=== PATIENT | male | born 1950 | race Caucasian/White ===

== ENCOUNTER 2016-04-25 00:07 | Observation (INO) | payer MEDICARE, OTHER ==
[2016-04-25 05:19] LABS: HEMOGLOBIN 11.4 gm/dl (14.0-17.5); RED BLOOD COUNT 3.59 M/UL (4.20-5.50); WHITE BLOOD COUNT 8.8 K/UL (4.5-11.0)
[2016-04-25] MEDS ORDERED: NEURONTIN 300300 MG PO (14:04)
[2016-04-25] MEDS ORDERED: SYNTHROID175 MCG PO (14:04)
[2016-04-25] MEDS ORDERED: MIRTAZAPINE7.5 MG PO (14:06)
[2016-04-25] MEDS ORDERED: VITAMIN D1000 UNI1 PO (14:07)
[2016-04-25] MEDS ORDERED: IMDUR ER TAB 3030 MG PO (14:13)
[2016-04-25] MEDS ORDERED: LIPITOR TAB 2020 MG PO (14:13)
[2016-04-25] MEDS ORDERED: LISINOPRIL40 MG PO (14:14)
[2016-04-25] MEDS ORDERED: METOPROLOL TART25 MG PO (14:15)
[2016-04-25] MEDS ORDERED: ASPIR 8181 MG PO (14:16)
[2016-04-25] MEDS ORDERED: B-121000 MCG PO (14:16)
[2016-04-25] MEDS ORDERED: LANTUS100 UNIT/1 SQ (14:17)
[2016-04-25] MEDS ORDERED: MIRAPEX1.5 MG PO (14:17)
[2016-04-25] MEDS ORDERED: NOVOLOG100 UNIT/1 SQ ×2 (14:19→14:20)
[2016-04-25] MEDS ORDERED: PROVENTIL HFA 61 INH INH (14:22)
[2016-04-25] MEDS ORDERED: EFFEXOR 37.537.5 MG PO (14:26)
[2016-04-26 06:34] LABS: HEMOGLOBIN 11.2 gm/dl (14.0-17.5); RED BLOOD COUNT 3.55 M/UL (4.20-5.50); WHITE BLOOD COUNT 9.8 K/UL (4.5-11.0)
[2016-04-26] MEDS ORDERED: AUGMENTIN 875-1 EACH PO (11:30)
[2016-08-19] MEDS ORDERED: OXYCONTIN20 MG PO (02:27)
[2016-08-19] MEDS ORDERED: SYNTHROID200 MCG PO (02:27)
[2016-08-19] MEDS ORDERED: TENORMIN 25 MG25 MG PO (02:28)
[2016-08-19] MEDS ORDERED: VITAMIN D350000 UNIT PO (02:28)
[2016-08-19] MEDS ORDERED: ISORDIL TAB 1010 MG PO (02:29)
[2016-08-19] MEDS ORDERED: ZOCOR 40 MG TAB40 MG PO (02:30)
[2016-08-19] MEDS ORDERED: HYDROCODON-ACE1 EAC2 PO (02:31)
[2016-08-19] MEDS ORDERED: VITAMIN B-121000 MC3 PO (02:33)
[2016-08-19] MEDS ORDERED: LANTUS100 UNIT/1 SQ (02:35)
[2016-08-19] MEDS ORDERED: ROBITUSSIN AC480 ML PO (02:38)
[2016-08-19] MEDS ORDERED: HUMULIN R500 UNIT/1 SQ (02:41)
[2016-08-19] MEDS ORDERED: NEURONTIN 300300 MG PO (03:40)
[2016-08-19] MEDS ORDERED: MIRAPEX1.5 MG PO (03:41)
[2016-08-19] MEDS ORDERED: PROVENTIL HFA 61 INH INH ×2 (03:43→03:49)
[2016-08-20] MEDS ORDERED: NOVOLOG 10100 UNITS/ SC (12:23)
[2016-08-20] MEDS ORDERED: NOVOLOG 10100 UNITS/ INJ ×2 (12:24→12:25)
[2016-08-20] MEDS ORDERED: LANTUS100 UNIT/1 SQ (12:26)
== END 2016-04-26 12:27 | disposition home or self-care (01) ==
LOC: ER1 00:07 → M/S 10:00 → ZEROF 10:00 → M/S 10:00
PROVIDERS: Family Medicine; Physician Assistant; ADMIT Internal Medicine
DX: R07.89 Other chest pain (principal); I51.7 Cardiomegaly; J98.11 Atelectasis; J18.9 Pneumonia, unspecified organism; E11.22 Type 2 diabetes mellitus with diabetic chronic kidney disease; I12.9 Hypertensive chronic kidney disease with stage 1 through stage 4 chronic kidney disease, or unspecified chronic kidney disease; N18.3 Chronic kidney disease, stage 3 (moderate); R74.8 Abnormal levels of other serum enzymes; F17.210 Nicotine dependence, cigarettes, uncomplicated; Z85.828 Personal history of other malignant neoplasm of skin; Z82.49 Family history of ischemic heart disease and other diseases of the circulatory system; Z83.3 Family history of diabetes mellitus; Z80.51 Family history of malignant neoplasm of kidney; Z82.0 Family history of epilepsy and other diseases of the nervous system; Z88.8 Allergy status to other drugs, medicaments and biological substances; Z79.82 Long term (current) use of aspirin; Z79.899 Other long term (current) drug therapy; Z90.49 Acquired absence of other specified parts of digestive tract; Z98.890 Other specified postprocedural states
CPT/HCPCS: ECHO; 36415; 71010; 71260; 80048; 80053; 80061; 82550; 82553; 82962; 83690; 83874; 83880; 84443; 84484; 85025; 85379; 93005; 93306; 96374; 96375; 99285; G0378; J0456; J0696; J7030; J7050; Q9963

== ENCOUNTER → 2016-06-16 | Outpatient (CLI) | payer MEDICARE, OTHER ==
[~2016-06-16] MED LIST: ASPIR 8181 MG PO; AUGMENTIN 875-1 EACH PO; B-121000 MCG PO; EFFEXOR 37.537.5 MG PO; HUMULIN R500 UNIT/1 SQ; HYDROCODON-ACE1 EAC2 PO; IMDUR ER TAB 3030 MG PO; ISORDIL TAB 1010 MG PO; LANTUS100 UNIT/1 SQ; LIPITOR TAB 2020 MG PO; LISINOPRIL40 MG PO; METOPROLOL TART25 MG PO; MIRAPEX1.5 MG PO; MIRTAZAPINE7.5 MG PO; NEURONTIN 300300 MG PO; NOVOLOG 10100 UNITS/ INJ; NOVOLOG 10100 UNITS/ SC; NOVOLOG100 UNIT/1 SQ; OXYCONTIN20 MG PO; PROVENTIL HFA 61 INH INH; ROBITUSSIN AC480 ML PO; SYNTHROID175 MCG PO; SYNTHROID200 MCG PO; TENORMIN 25 MG25 MG PO; VITAMIN B-121000 MC3 PO; VITAMIN D1000 UNI1 PO; VITAMIN D350000 UNIT PO; ZOCOR 40 MG TAB40 MG PO
== END ==
LOC: KOH-I 12:15
DX: R42 Dizziness and giddiness (principal); R53.83 Other fatigue; H53.9 Unspecified visual disturbance; R90.89 Other abnormal findings on diagnostic imaging of central nervous system
CPT/HCPCS: 70551

== ENCOUNTER → 2020-08-12 | Outpatient (CLI) | payer MEDICARE ==
[~2020-08-12] MED LIST changes: +CLONIDINE1 EAC1 TD; +DILTIAZEM 12HR90 MG PO; +FLONASE 0.05% N16 GM; +INSULIN SQ; -ISORDIL TAB 1010 MG PO; +ISOSORBIDE MONO60 MG PO; +LIPITOR40 MG PO; +LOPRESSOR50 MG PO; +NESINA12.5 MG PO; +NEURONTIN300 MG PO; +NITROSTAT0.4 MG SL; +NORCO 10-325 T1 EACH PO; +NOVOLOG FL100 UNIT/1 INJ; +PROAIR DIGIHAL90 MCG INH; +ROPINIROLE HCL2 MG PO; +VENLAFAXINE HCL75 M2 PO
== END ==
LOC: RAD 14:04
DX: M25.562 Pain in left knee (principal)
CPT/HCPCS: 73562

== ENCOUNTER 2021-04-26 20:24 | Inpatient (IN) | payer MEDICARE ==
[~2021-04-26] VITALS: Ht 167.6 cm; Wt 141.0 kg
[~2021-04-26 20:24] MED LIST changes: -DILTIAZEM 12HR90 MG PO; +DILTIAZEM HCL90 MG PO; -NOVOLOG 10100 UNITS/ SC; +NOVOLOG 10100 UNITS/ SQ; +SYNTHROID150 MCG PO; -SYNTHROID200 MCG PO
[2021-04-26 20:44] LABS: HEMOGLOBIN 11.8 gm/dl (14.0-17.5); RED BLOOD COUNT 3.9 M/UL (4.20-5.50); WHITE BLOOD COUNT 19.2 K/UL (4.5-11.0)
[2021-04-27] MEDS ORDERED: AMBIEN5 MG PO (02:07)
[2021-04-27] MEDS ORDERED: CLONIDINE HCL0.1 MG PO (02:08)
[2021-04-27 05:19] LABS: HEMOGLOBIN 10.4 gm/dl (14.0-17.5); RED BLOOD COUNT 3.36 M/UL (4.20-5.50)
[2021-04-27] MEDS ORDERED: TRAMADOL HCL50 MG PO (11:11)
[2021-04-27] MEDS ORDERED: TRULICITY3 MG/0.5 M SQ (11:12)
[2021-04-27] MEDS ORDERED: KETOCONAZOLE120 ML TOP (11:12)
[2021-04-27] MEDS ORDERED: VOLTAREN ARTHRI20 GM TOP (11:12)
[2021-04-28 04:47] LABS: HEMOGLOBIN 9.9 gm/dl (14.0-17.5); RED BLOOD COUNT 3.23 M/UL (4.20-5.50); WHITE BLOOD COUNT 10.8 K/UL (4.5-11.0)
[2021-04-28 11:16] LABS: CREATININE, URINE 60.2 mg/dL (Not Estab.)
[2021-04-28 20:04] LABS: HEMOGLOBIN 9.7 gm/dl (14.0-17.5); RED BLOOD COUNT 3.2 M/UL (4.20-5.50)
[2021-04-28 20:09] LABS: WHITE BLOOD COUNT 16.1 K/UL (4.5-11.0)
[2021-04-29 04:59] LABS: RED BLOOD COUNT 2.98 M/UL (4.20-5.50); WHITE BLOOD COUNT 14.4 K/UL (4.5-11.0)
[2021-04-29 05:04] LABS: HEMOGLOBIN 9.4 gm/dl (14.0-17.5)
[2021-04-29 10:16] LABS: HBSAG SCREEN Negative (Negative); HEP A AB, IGM Negative (Negative); HEP B CORE AB, IGM Negative (Negative); HEP C VIRUS AB <0.1 (0.0-0.9)
[2021-04-30 05:38] LABS: HEMOGLOBIN 9.8 gm/dl (14.0-17.5); RED BLOOD COUNT 3.19 M/UL (4.20-5.50); WHITE BLOOD COUNT 16.3 K/UL (4.5-11.0)
[2021-05-01 05:05] LABS: RED BLOOD COUNT 3.28 M/UL (4.20-5.50)
[2021-05-02 05:20] LABS: HEMOGLOBIN 8.6 gm/dl (14.0-17.5)
[2021-05-02 05:21] LABS: RED BLOOD COUNT 2.81 M/UL (4.20-5.50)
[2021-05-03 04:24] LABS: HEMOGLOBIN 8.4 gm/dl (14.0-17.5); RED BLOOD COUNT 2.62 M/UL (4.20-5.50); WHITE BLOOD COUNT 13.9 K/UL (4.5-11.0)
[2021-05-04 05:09] LABS: RED BLOOD COUNT 2.63 M/UL (4.20-5.50)
--- NOTE | 2021-05-04 19:45 | NUR ---
EKG CHANGES NOTED. 12 LEAD EKG OBTAINED AND SENT TO [employer] VERIFICATION ENGINEER DR. JAMES. ORDERS RECEIVED. DR MOHAMUD AND PATIENTS NOTIFIED AND UPDATE WAS GIVEN. DNR WISHES OBTAINED BY YFN NUNEZ () AN ORDER WAS RECEIVED TO CHANGE TO DNR STATUS BY DR. MOHAMUD. PATIENT AT 2051 , BRISSA WAS NOTIFIED , OK WAS GIVEN TO RELEASE BODY BY BRISSA WEBB. FAMILY WISHES BODY RELEASED TO [facility]
== END 2021-05-04 20:52 | disposition expired | DRG 246 ==
LOC: ER1 20:24 → CDU 23:43 → CCU 23:43
PROVIDERS: Emergency Medicine; Family Medicine; Internal Medicine; Internal Medicine Interventional Cardiology; Internal Medicine Nephrology; Psychiatry & Neurology Neurology; ADMIT Internal Medicine
PROC: 0BH18EZ Insertion of Endotracheal Airway into Trachea, Via Natural or Artificial Opening Endoscopic (ICD-10-PCS; 2021-04-26)
PROC: 5A1955Z Respiratory Ventilation, Greater than 96 Consecutive Hours (ICD-10-PCS; 2021-04-26)
PROC: 3E043XZ Introduction of Vasopressor into Central Vein, Percutaneous Approach (ICD-10-PCS; principal; 2021-04-27)
PROC: 3E03329 Introduction of Other Anti-infective into Peripheral Vein, Percutaneous Approach (ICD-10-PCS; 2021-04-27)
PROC: B24BZZZ Ultrasonography of Heart with Aorta (ICD-10-PCS; 2021-04-27)
PROC: 0DH63UZ Insertion of Feeding Device into Stomach, Percutaneous Approach (ICD-10-PCS; 2021-04-27)
PROC: 3E0336Z Introduction of Nutritional Substance into Peripheral Vein, Percutaneous Approach (ICD-10-PCS; 2021-04-27)
PROC: 027035Z Dilation of Coronary Artery, One Artery with Two Drug-eluting Intraluminal Devices, Percutaneous Approach (ICD-10-PCS; 2021-04-28)
PROC: 02F03ZZ Fragmentation in Coronary Artery, One Artery, Percutaneous Approach (ICD-10-PCS; 2021-04-28)
PROC: 4A023N7 Measurement of Cardiac Sampling and Pressure, Left Heart, Percutaneous Approach (ICD-10-PCS; 2021-04-28)
PROC: B2111ZZ Fluoroscopy of Multiple Coronary Arteries using Low Osmolar Contrast (ICD-10-PCS; 2021-04-28)
PROC: 02HV33Z Insertion of Infusion Device into Superior Vena Cava, Percutaneous Approach (ICD-10-PCS; 2021-05-04)
PROC: B548ZZA Ultrasonography of Superior Vena Cava, Guidance (ICD-10-PCS; 2021-05-04)
PROC: 5A1D70Z Performance of Urinary Filtration, Intermittent, Less than 6 Hours Per Day (ICD-10-PCS; 2021-05-04)
DX: I13.0 Hypertensive heart and chronic kidney disease with heart failure and stage 1 through stage 4 chronic kidney disease, or unspecified chronic kidney disease (principal); A41.9 Sepsis, unspecified organism; J96.01 Acute respiratory failure with hypoxia; I21.A1 Myocardial infarction type 2; K72.00 Acute and subacute hepatic failure without coma; G93.41 Metabolic encephalopathy; J96.02 Acute respiratory failure with hypercapnia; I50.31 Acute diastolic (congestive) heart failure; N17.0 Acute kidney failure with tubular necrosis; J15.0 Pneumonia due to Klebsiella pneumoniae; N18.4 Chronic kidney disease, stage 4 (severe); E72.20 Disorder of urea cycle metabolism, unspecified; E87.2 Acidosis; Z99.11 Dependence on respirator [ventilator] status; I47.1 Supraventricular tachycardia; Z68.42 Body mass index [BMI] 45.0-49.9, adult; Z20.822 Contact with and (suspected) exposure to COVID-19; E11.22 Type 2 diabetes mellitus with diabetic chronic kidney disease; E11.51 Type 2 diabetes mellitus with diabetic peripheral angiopathy without gangrene; I73.9 Peripheral vascular disease, unspecified; E78.5 Hyperlipidemia, unspecified; I25.10 Atherosclerotic heart disease of native coronary artery without angina pectoris; E11.65 Type 2 diabetes mellitus with hyperglycemia; M19.91 Primary osteoarthritis, unspecified site; G47.00 Insomnia, unspecified; E66.01 Morbid (severe) obesity due to excess calories; M81.0 Age-related osteoporosis without current pathological fracture; E03.9 Hypothyroidism, unspecified; E83.51 Hypocalcemia; R57.0 Cardiogenic shock; Z82.49 Family history of ischemic heart disease and other diseases of the circulatory system; Z90.49 Acquired absence of other specified parts of digestive tract; Z98.890 Other specified postprocedural states; Z98.49 Cataract extraction status, unspecified eye; Z87.891 Personal history of nicotine dependence; Z79.82 Long term (current) use of aspirin; Z79.899 Other long term (current) drug therapy; Z79.4 Long term (current) use of insulin; Z88.8 Allergy status to other drugs, medicaments and biological substances; Z95.1 Presence of aortocoronary bypass graft; Z99.2 Dependence on renal dialysis
CPT/HCPCS: ECHO; 0240U; 31500; 36415; 36600; 51702; 70450; 71045; 71275; 80048; 80053; 80074; 80076; 80202; 80307; 81001; 82009; 82043; 82140; 82550; 82553; 82570; 82803; 82947; 82962; 83605; 83735; 83880; 84100; 84132; 84156; 84484; 85025; 85027; 85347; 85610; 85730; 86140; 87040; 87070; 87077; 87081; 87186; 87205; 87449; 90935; 93005; 93306; 94002; 94003; 94640; 94664; 94760; 96374; 96375; 96376; 99285; C1725; C1752; C1761; C1769; C1874; C1887; C9113; J0360; J0461; J0610; J0692; J1200; J1644; J1940; J2250; J2270; J2405; J2704; J2930; J3010; J3246; J3370; J7030; J7040; J7070; P9047; Q9965; Q9967